=== PATIENT | female | born 1930 | race Caucasian/White ===

== ENCOUNTER 2016-10-17 09:15 | Outpatient (CLI) ==
[2014-12-16 17:01] VITALS: BMI 20.5
[2016-10-17 16:02] LABS: BASOPHILS # (AUTO) 0.1 K/uL (0-0.2); BASOPHILS % (AUTO) 1.1 % (0.0-3.0); EOSINOPHILS # (AUTO) 0.2 K/ul (0.0-0.7); EOSINOPHILS % (AUTO) 2.8 % (0.0-7.0); HEMATOCRIT 32.8 % (37.0-47.0); HEMOGLOBIN 10.3 g/dl (12.0-16.0); IMMATURE GRANULOCYTE % (AUTO) 0.4 % (0.0-5.0); LYMPHOCYTES # (AUTO) 1.8 K/uL (0.60-3.4); LYMPHOCYTES % (AUTO) 20.7 (10.0-50.0); MEAN CORPUSCULAR HEMOGLOBIN 29.8 pg (27.0-31.0); MEAN CORPUSCULAR HGB CONC 31.4 (31.8-35.4); MEAN CORPUSCULAR VOLUME 94.8 fl (81.0-99.0); MONOCYTES # (AUTO) 0.6 K/uL (0.4-2.0); MONOCYTES % (AUTO) 6.4 (0-10); NEUTROPHILS # (AUTO) 5.9 K/ul (2.0-6.9); NEUTROPHILS % (AUTO) 68.6; PLATELET COUNT 352 10^3/uL (140-440); RED BLOOD COUNT 3.46 10^6/ul (4.20-5.40); WHITE BLOOD COUNT 8.56 K/ul (4.6-10.2)
[2016-10-17 16:09] LABS: BILIRUBIN,URINE Negative (NEGATIVE); KETONES,URINE Negative (NEGATIVE); LEUKOCYTE ESTERASE ,URINE 1+ (NEGATIVE); NITRITE,URINE Negative (NEGATIVE); PROTEIN,URINE Negative (NEGATIVE); URINE, BLOOD Negative (NEGATIVE)
[2016-10-17 16:16] LABS: ADD URINE MICROSCOPIC YES
[2016-10-17 16:19] LABS: BACTERIA,URINE 1+ (NOT PRESENT)
[2016-10-17 16:28] LABS: ALBUMIN 3.4 g/dL (3.4-5.0); ALBUMIN/GLOBULIN RATIO 1.13; ANION GAP 14.1; BILIRUBIN,TOTAL 0.37 mg/dL (0.00-1.20); BUN/CREATININE RATIO 20.74; CALCIUM 9.3 mg/dL (8.2-10.2); CHOL/HDL RATIO 3.4 (4.5-5.5); CREATININE 2.7 mg/dL (0.60-1.30); MAGNESIUM 1.9 mg/dL (1.7-2.2); PHOSPHORUS 3.8 mg/dL (2.8-4.1); POTASSIUM 4.1 mmol/L (3.5-5.10); TOTAL PROTEIN 6.4 g/dL (5.8-8.1); URIC ACID 6.1 mg/dL (2.4-6.0)
[2016-10-18 07:17] LABS: URINE CREATINE 125.6 mg/dL (Not Estab.)
[2016-10-18 09:29] LABS: VITAMIN D25 50.2 ng/mL (30.0-100.0)
== END 2016-10-17 09:16 | disposition home or self-care (01) ==
LOC: LAB 09:15
PROVIDERS: ATTEND General Practice
DX: N18.4 Chronic kidney disease, stage 4 (severe) (principal); E55.9 Vitamin D deficiency, unspecified; I10 Essential (primary) hypertension
CPT/HCPCS: 36415; 80053; 80061; 81001; 82306; 82570; 83735; 83970; 84100; 84156; 84550; 85025

== ENCOUNTER 2017-02-14 11:41 | Outpatient (CLI) ==
[2014-12-16 17:01] VITALS: BMI 20.5
[2017-02-14 12:47] LABS: BASOPHILS # (AUTO) 0.1 K/uL (0-0.2); BASOPHILS % (AUTO) 1.4 % (0.0-3.0); EOSINOPHILS # (AUTO) 0.2 K/ul (0.0-0.7); HEMATOCRIT 34.4 % (37.0-47.0); HEMOGLOBIN 11.5 g/dl (12.0-16.0); IMMATURE GRANULOCYTE % (AUTO) 0.2 % (0.0-5.0); LYMPHOCYTES # (AUTO) 2.3 K/uL (0.60-3.4); MEAN CORPUSCULAR HGB CONC 33.4 (31.8-35.4); MEAN CORPUSCULAR VOLUME 92.7 fl (81.0-99.0); MONOCYTES # (AUTO) 0.6 K/uL (0.4-2.0); NEUTROPHILS # (AUTO) 4.9 K/ul (2.0-6.9); NEUTROPHILS % (AUTO) 60.4; PLATELET COUNT 359 10^3/uL (140-440); RED BLOOD COUNT 3.71 10^6/ul (4.20-5.40); WHITE BLOOD COUNT 8.13 K/ul (4.6-10.2)
[2017-02-14 13:03] LABS: ALBUMIN 3.7 g/dL (3.4-5.0); ALBUMIN/GLOBULIN RATIO 1.23; ANION GAP 15.2; BILIRUBIN,TOTAL 0.73 mg/dL (0.00-1.20); BILIRUBIN,URINE Negative (NEGATIVE); BUN/CREATININE RATIO 19.77; CALCIUM 9.8 mg/dL (8.2-10.2); CHOL/HDL RATIO 3.3 (4.5-5.5); CREATININE 2.68 mg/dL (0.60-1.30); KETONES,URINE Negative (NEGATIVE); LEUKOCYTE ESTERASE ,URINE 3+ (NEGATIVE); NITRITE,URINE Negative (NEGATIVE); POTASSIUM 4.2 mmol/L (3.5-5.10); PROTEIN,URINE Negative (NEGATIVE); TOTAL PROTEIN 6.7 g/dL (5.8-8.1); URINE, BLOOD Negative (NEGATIVE)
[2017-02-14 13:24] LABS: ADD URINE MICROSCOPIC YES
[2017-02-14 13:27] LABS: BACTERIA,URINE 3+ (NOT PRESENT)
== END 2017-02-14 11:42 | disposition home or self-care (01) ==
LOC: LAB 11:41
PROVIDERS: ATTEND General Practice
DX: I10 Essential (primary) hypertension (principal); N18.4 Chronic kidney disease, stage 4 (severe); E78.5 Hyperlipidemia, unspecified; Z79.899 Other long term (current) drug therapy
CPT/HCPCS: 36415; 80053; 80061; 81001; 85025; 87086; 87186

== ENCOUNTER 2017-02-15 11:41 | Outpatient (CLI) ==
[2014-12-16 17:01] VITALS: BMI 20.5
[2017-02-15 13:07] LABS: HEMATOCRIT 32.7 % (37.0-47.0); HEMOGLOBIN 11.1 g/dl (12.0-16.0); MEAN CORPUSCULAR HEMOGLOBIN 31.1 pg (27.0-31.0); MEAN CORPUSCULAR HGB CONC 33.9 (31.8-35.4); MEAN CORPUSCULAR VOLUME 91.6 fl (81.0-99.0); RED BLOOD COUNT 3.57 10^6/ul (4.20-5.40); WHITE BLOOD COUNT 7.81 K/ul (4.6-10.2)
[2017-02-15 13:17] LABS: BILIRUBIN,URINE Negative (NEGATIVE); KETONES,URINE Negative (NEGATIVE); LEUKOCYTE ESTERASE ,URINE 2+ (NEGATIVE); NITRITE,URINE Negative (NEGATIVE); PROTEIN,URINE Negative (NEGATIVE); URINE, BLOOD Negative (NEGATIVE)
[2017-02-15 13:18] LABS: ADD URINE MICROSCOPIC YES
[2017-02-15 13:22] LABS: BACTERIA,URINE 3+ (NOT PRESENT)
[2017-02-15 14:10] LABS: ALBUMIN 3.7 g/dL (3.4-5.0); ANION GAP 14.3; BUN/CREATININE RATIO 22.52; CALCIUM 9.7 mg/dL (8.2-10.2); CREATININE 2.53 mg/dL (0.60-1.30); PHOSPHORUS 3.1 mg/dL (2.8-4.1); POTASSIUM 4.3 mmol/L (3.5-5.10); URIC ACID 5.4 mg/dL (2.4-6.0)
[2017-02-16 06:12] LABS: URINE CREATINE 75.8 mg/dL (Not Estab.)
== END 2017-02-15 11:42 | disposition home or self-care (01) ==
LOC: LAB 11:41
PROVIDERS: ATTEND General Practice
DX: N18.4 Chronic kidney disease, stage 4 (severe) (principal); I10 Essential (primary) hypertension
CPT/HCPCS: 36415; 80069; 81001; 82306; 82570; 83735; 83970; 84156; 84550; 85025; 85027

== ENCOUNTER 2017-04-11 13:58 | Outpatient (CLI) ==
[2014-12-16 17:01] VITALS: BMI 20.5
[2017-04-11 16:15] LABS: BASOPHILS # (AUTO) 0.1 K/uL (0-0.2); BASOPHILS % (AUTO) 0.9 % (0.0-3.0); EOSINOPHILS # (AUTO) 0.1 K/ul (0.0-0.7); EOSINOPHILS % (AUTO) 0.6 % (0.0-7.0); HEMATOCRIT 35.3 % (37.0-47.0); IMMATURE GRANULOCYTE % (AUTO) 0.1 % (0.0-5.0); LYMPHOCYTES # (AUTO) 1.3 K/uL (0.60-3.4); LYMPHOCYTES % (AUTO) 15.7 (10.0-50.0); MEAN CORPUSCULAR HEMOGLOBIN 31.7 pg (27.0-31.0); MEAN CORPUSCULAR VOLUME 93.1 fl (81.0-99.0); MONOCYTES # (AUTO) 0.3 K/uL (0.4-2.0); MONOCYTES % (AUTO) 4.1 (0-10); NEUTROPHILS # (AUTO) 6.4 K/ul (2.0-6.9); NEUTROPHILS % (AUTO) 78.6; PLATELET COUNT 332 10^3/uL (140-440); RED BLOOD COUNT 3.79 10^6/ul (4.20-5.40); WHITE BLOOD COUNT 8.14 K/ul (4.6-10.2)
[2017-04-11 16:22] LABS: OCCULT BLOOD INTERNAL QC 1 INTERNAL QC VALID; OCCULT BLOOD INTERNAL QC 2 INTERNAL QC VALID; OCCULT BLOOD INTERNAL QC 3 INTERNAL QC VALID; OCCULT BLOOD SAMPLE 1 NEGATIVE (NEGATIVE); OCCULT BLOOD SAMPLE 2 NO SPECIMEN RECEIVED (NEGATIVE); OCCULT BLOOD SAMPLE 3 NO SPECIMEN RECEIVED (NEGATIVE)
[2017-04-11 16:51] LABS: ALBUMIN 4.3 g/dL (3.4-5.0); ALBUMIN/GLOBULIN RATIO 1.72; ANION GAP 14.9; BILIRUBIN,TOTAL 0.66 mg/dL (0.00-1.20); CALCIUM 10.1 mg/dL (8.2-10.2); CREATININE 3.43 mg/dL (0.60-1.30); POTASSIUM 4.9 mmol/L (3.5-5.10); TOTAL PROTEIN 6.8 g/dL (5.8-8.1)
[2017-04-11 16:52] LABS: BUN/CREATININE RATIO 16.61
== END 2017-04-11 13:59 | disposition home or self-care (01) ==
LOC: LAB 13:58
PROVIDERS: ATTEND General Practice
DX: R10.9 Unspecified abdominal pain (principal); Z79.891 Long term (current) use of opiate analgesic; R43.8 Other disturbances of smell and taste
CPT/HCPCS: 36415; 80053; 82272; 84443; 85025

== ENCOUNTER 2017-04-12 12:50 | Observation (INO) | payer OTHER ==
[2017-04-12 13:34] VITALS: BMI 20.2
--- NOTE | 2017-04-12 16:56 | DI ---
EXAM: Two-view chest HISTORY: Weight loss TECHNIQUE: Frontal and lateral views of the chest were obtained. Comparison 12/16/2014. FINDINGS: The heart is normal size. There is stable appearance of probable scarring in the lateral left lung base. Lungs are otherwise clear. The pulmonary vasculature appears normal. The osseous structures are normal. IMPRESSION: No active cardiopulmonary disease.
--- NOTE | 2017-04-12 16:57 | DI ---
Exam: Two x-rays of the abdomen. Comparison: None available. Reason for exam: Abdominal pain. FINDINGS: Levoscoliotic changes are seen in the thoracolumbar spine. The bowel gas pattern is nons pecific and nonobstructive. Air is seen to the level of the rectosigmoid. There is a moderate amou nt of stool seen within the colon. The pelvic ring appears intact. Impression: 1. Nonspecific, nonobstructive bowel gas pattern with air seen to the level of the rectosigmoid wit h a moderate stool burden. 2. Levoscoliosis.
[2017-04-12] MEDS: COZAAR PO SCH (20:46)
[2017-04-12] MEDS: APRESOLINE PO SCH (20:46)
[2017-04-12] MEDS: SODIUM BICARBONATE PO SCH (20:47)
[2017-04-12] MEDS ORDERED: INFUVITE ADULT IV ONE (20:56)
[2017-04-12] MEDS ORDERED: ARICEPT PO SCH (21:00)
[2017-04-12] MEDS: INFUVITE ADULT 10 ML in D5%-1/4NS-KCL 20 MEQ/L IV SOL 1,000 ML IV SCH (21:04)
[2017-04-13 04:44] LABS: BASOPHILS # (AUTO) 0.1 K/uL (0-0.2); BASOPHILS % (AUTO) 1.1 % (0.0-3.0); EOSINOPHILS # (AUTO) 0.2 K/ul (0.0-0.7); EOSINOPHILS % (AUTO) 3.2 % (0.0-7.0); HEMATOCRIT 30.4 % (37.0-47.0); HEMOGLOBIN 10.2 g/dl (12.0-16.0); IMMATURE GRANULOCYTE % (AUTO) 0.2 % (0.0-5.0); LYMPHOCYTES # (AUTO) 1.7 K/uL (0.60-3.4); LYMPHOCYTES % (AUTO) 26.3 (10.0-50.0); MEAN CORPUSCULAR HEMOGLOBIN 31.1 pg (27.0-31.0); MEAN CORPUSCULAR HGB CONC 33.6 (31.8-35.4); MEAN CORPUSCULAR VOLUME 92.7 fl (81.0-99.0); MONOCYTES # (AUTO) 0.6 K/uL (0.4-2.0); MONOCYTES % (AUTO) 9.2 (0-10); NEUTROPHILS # (AUTO) 3.9 K/ul (2.0-6.9); PLATELET COUNT 246 10^3/uL (140-440); RED BLOOD COUNT 3.28 10^6/ul (4.20-5.40); WHITE BLOOD COUNT 6.53 K/ul (4.6-10.2)
[2017-04-13 05:04] LABS: ALBUMIN 3.3 g/dL (3.4-5.0); ALBUMIN/GLOBULIN RATIO 1.57; ANION GAP 14.9; BILIRUBIN,TOTAL 0.49 mg/dL (0.00-1.20); BUN/CREATININE RATIO 17.76; CALCIUM 9.2 mg/dL (8.2-10.2); CREATININE 3.04 mg/dL (0.60-1.30); POTASSIUM 4.9 mmol/L (3.5-5.10); TOTAL PROTEIN 5.4 g/dL (5.8-8.1)
[2017-04-13] MEDS ORDERED: NIFEREX 150 PO SCH (08:00)
[2017-04-13] MEDS ORDERED: INFUVITE ADULT IV ONE (08:55)
[2017-04-13] MEDS ORDERED: VITAMIN D PO SCH (09:00)
[2017-04-13] MEDS ORDERED: BYSTOLIC PO SCH (09:00)
[2017-04-13] MEDS ORDERED: MULTIVITAMIN PO SCH (09:00)
[2017-04-13] MEDS ORDERED: NORVASC PO SCH (09:00)
[2017-04-13] MEDS ORDERED: HYDROCHLOROTHIAZIDE PO SCH (09:00)
[2017-04-13] MEDS ORDERED: ZYLOPRIM PO SCH (09:00)
[2017-04-13] MEDS: INFUVITE ADULT 10 ML in D5%-1/4NS-KCL 20 MEQ/L IV SOL 1,000 ML IV SCH (09:01)
[2017-04-13] MEDS: SODIUM BICARBONATE PO SCH ×2 (09:12→22:44)
[2017-04-13] MEDS: COZAAR PO SCH ×2 (09:13→22:44)
[2017-04-13] MEDS: APRESOLINE PO SCH ×2 (09:13→22:43)
[2017-04-13 10:38] LABS: H. PYLORI STOOL ANTIGEN NEGATIVE (NEGATIVE); H.PYLORI STOOL AG INTERNAL QC INTERNAL QC VALID
[2017-04-13] MEDS: NON-FORMULARY MEDICATION (Cyanocobalamin (Vitamin B-12) [Vitamin B-12] 2,500 MCG) SL SCH (13:31)
--- NOTE | 2017-04-13 14:21 | CT ---
EXAM: CT Abdomen without contrast. CT Pelvis without contrast. HISTORY: Nausea. Generalized abdominal pain. COMPARISON: None available. Radiograph 1 day prior. TECHNIQUE: Multiple axial images of the abdomen and pelvis were obtained without intravenous contra st. Images were reformatted in the coronal plane. FINDINGS: Please note that evaluation of the abdominal and pelvic structures is limited due to lack of intravenous contrast. Subsegmental atelectasis noted in the right lung base. Degenerative changes present in the spine, g reatest at T12-L1 and L1-2. The liver, gallbladder, pancreas, spleen, and adrenal glands demonstrate normal contour. There is l eft renal atrophy. Exophytic low-density left renal lesions measure up to 2.3 x 2.4 cm superiorly o n axial image 15 and 4.7 x 4 cm on axial image 17. No calcified renal stones or hydronephrosis iden tified. The bowel is normal in course and caliber without evidence for obstruction or inflammatory process. The appendix is not seen. Uterus demonstrates normal contour. Urinary bladder is unremarkable. P hleboliths noted in the pelvis. No free fluid or free air identified. Atherosclerotic calcificatio ns are present. IMPRESSION: 1. No acute abnormality within the abdomen or pelvis. 2. Probable left renal cysts. Correlate with ultrasound.
[2017-04-13] MEDS: NON-FORMULARY MEDICATION (Amlodipine Besylate [Amlodipine Besylate] 10 MG) PO SCH ×22 (15:11)
[2017-04-13] MEDS ORDERED: ARICEPT PO SCH (21:00)
[2017-04-14 05:24] LABS: BASOPHILS # (AUTO) 0.1 K/uL (0-0.2); BASOPHILS % (AUTO) 1.5 % (0.0-3.0); EOSINOPHILS # (AUTO) 0.2 K/ul (0.0-0.7); EOSINOPHILS % (AUTO) 2.7 % (0.0-7.0); HEMATOCRIT 31.7 % (37.0-47.0); HEMOGLOBIN 10.7 g/dl (12.0-16.0); IMMATURE GRANULOCYTE % (AUTO) 0.4 % (0.0-5.0); LYMPHOCYTES # (AUTO) 2.5 K/uL (0.60-3.4); LYMPHOCYTES % (AUTO) 30.1 (10.0-50.0); MEAN CORPUSCULAR HEMOGLOBIN 30.7 pg (27.0-31.0); MEAN CORPUSCULAR HGB CONC 33.8 (31.8-35.4); MEAN CORPUSCULAR VOLUME 90.8 fl (81.0-99.0); MONOCYTES # (AUTO) 0.7 K/uL (0.4-2.0); MONOCYTES % (AUTO) 8.4 (0-10); NEUTROPHILS # (AUTO) 4.6 K/ul (2.0-6.9); NEUTROPHILS % (AUTO) 56.9; PLATELET COUNT 268 10^3/uL (140-440); RED BLOOD COUNT 3.49 10^6/ul (4.20-5.40); WHITE BLOOD COUNT 8.13 K/ul (4.6-10.2)
[2017-04-14 05:43] LABS: ALBUMIN 3.5 g/dL (3.4-5.0); ALBUMIN/GLOBULIN RATIO 1.67; ANION GAP 14.5; BILIRUBIN,TOTAL 0.7 mg/dL (0.00-1.20); BUN/CREATININE RATIO 16.39; CALCIUM 9.6 mg/dL (8.2-10.2); CREATININE 2.44 mg/dL (0.60-1.30); POTASSIUM 4.5 mmol/L (3.5-5.10); TOTAL PROTEIN 5.6 g/dL (5.8-8.1)
[2017-04-14] MEDS ORDERED: SPIRONOLACTONE 50 MG PO SCH (09:00)
[2017-04-14] MEDS ORDERED: HYDROCHLOROTHIAZIDE PO SCH (09:00)
[2017-04-14] MEDS ORDERED: VIT B12 PO SCH (09:00)
[2017-04-14] MEDS ORDERED: NON-FORMULARY MEDICATION (Cholecalciferol (Vitamin D3) [Vitamin D3] 2,000 UNIT) PO SCH (09:00)
[2017-04-14] MEDS ORDERED: [UNRECOGNIZED DRUG - OTHER] PO SCH (09:00)
[2017-04-14] MEDS ORDERED: ALDACTONE PO SCH (09:00)
[2017-04-14] MEDS ORDERED: IRON PS CMPLX PO SCH (09:00)
[2017-04-14] MEDS ORDERED: NON-FORMULARY MEDICATION (Multivit With Calcium,Iron,Min [Women's Daily Formula] 1 EACH) PO SCH (09:00)
[2017-04-14] MEDS ORDERED: NON-FORMULARY MEDICATION (Nebivolol Hcl [Bystolic] 10 MG) PO SCH ×22 (09:00)
[2017-04-14] MEDS: NON-FORMULARY MEDICATION (Amlodipine Besylate [Amlodipine Besylate] 10 MG) PO SCH ×22 (10:01)
[2017-04-14] MEDS: COZAAR PO SCH (10:02)
[2017-04-14] MEDS: SODIUM BICARBONATE PO SCH (10:02)
[2017-04-14] MEDS: APRESOLINE PO SCH (10:03)
[2017-04-14] MEDS: NON-FORMULARY MEDICATION (Cyanocobalamin (Vitamin B-12) [Vitamin B-12] 2,500 MCG) SL SCH (10:16)
[2017-04-14 10:37] VITALS: BP 172/72; TEMP 97.7
[2017-04-14 16:09] LABS: BILIRUBIN,URINE Negative (NEGATIVE); KETONES,URINE Negative (NEGATIVE); LEUKOCYTE ESTERASE ,URINE Negative (NEGATIVE); NITRITE,URINE Negative (NEGATIVE); PROTEIN,URINE Negative (NEGATIVE); URINE, BLOOD Negative (NEGATIVE)
[2017-04-14 16:10] LABS: ADD URINE MICROSCOPIC NO
--- NOTE | 2017-04-19 12:08 | HP ---
CHIEF COMPLAINT: Abdominal pain and tenderness. SOURCE OF HISTORY: . HISTORY OF PRESENT ILLNESS: The patient on 04/11/17 came to the office with her because of pain upon waking up in the morning for the last two months. The patient at that time no longer had pain, but had marked tenderness in the lower quadrants of the abdomen, but no palpable masses. Bowel sounds were active. She also lost a sense of smell and taste. She had labs that day, plus x -rays that showed borderline anemia, normal WBC, BUN markedly elevated at 57, creatinine 3.43, E GFR 13. TSH 8.335. Occult blood on stool was negative. X- rays were ordered, but was not certified with insurance. The X-rays consisted of CT scan of the head or MRI. Because of the unremarkable lab findings and the patient with active complaints, the patient was felt to require hospitalization under observation to do further testing. The patient was then subsequently admitted on 04/12/2017. PAST PERSONAL HISTORY: The patient had bilateral bronchiolitis maybe viral about three years ago. Chronic kidney disease stage IV followed by councilperson. Hypertension on medication. History of congestive heart failure on Aldactone. History of GERD and progressive senile dementia. She had complained of leg cramps previously, but not at this time. FAMILY HISTORY: Father had CVA. Mother had diabetes mellitus. SOCIAL HISTORY: The patient is and resides with her . This is her second marriage, as well as her husbands. She never did smoke any cigarettes or any tobacco products and no alcoholic beverages. MEDICATIONS: Prior to this admission Aldactone 50 mg tablet every 48 hours Donepezil 10 mg daily Iron plus B12 capsule one daily Amlodipine 10 mg daily Hydrochlorothiazide 12.5 mg every morning Hydralazine 100 mg twice a day for hypertension Vitamin D3 2,000 IU daily Vitamin B12 2,500 mcg sublingually daily Allopurinol 100 mg tablet daily Losartan 25 mg twice a day Nebivolol 10 mg daily Sodium Bicarbonate 650 mg tablet twice a day Women's Daily Formula vitamin one a day ALLERGIES: No known drug allergies. REVIEW OF SYSTEMS: CONSTITUTIONAL: The patient had no fever or chills with no significant fatigue. PERFORMANCE TEST ENGINEER: The patient has senile dementia and is forgetful, but answers questions correctly. History of seizures and no history of loss of consciousness. VISUAL: Denies any double vision, blurred vision or total loss of vision. AUDITORY: Hearing is adequate and denies any tinnitus, pain or drainage. RESPIRATORY: Denies any cough and no history of hemoptysis. CARDIOVASCULAR: The patient denies chest pain or chest oppression. She did have a history of congestive heart failure. GASTROINTESTINAL: The patient had lost her sense of smell, as well as taste. She denies any problems swallowing liquids or solids. Her appetite is decreased. She does have abdominal pain upon waking up in the morning in the last two months. Examination revealed tenderness in the lower abdomen with both left and right quadrants. No diarrhea. Last colonoscopy was somewhere about 2007. GENITOURINARY: The patient denies any pain on urination or burning. She does wake up during the night, about three times, to urinate according to her . This patient has chronic kidney disease stage IV to V. She is being followed by a councilperson. MUSCULOSKELETAL: Denies any significant joint or muscular pain. ENDOCRINE: Negative. INTEGUMENT: Denies any rash or pruritus. HEMATOLOGIC: No history of prolonged bleeding. PSYCHIATRIC: Affect is normal. The patient does have senile dementia and is very forgetful of recent events. PHYSICAL EXAMINATION: GENERAL: We have an 86 year old female who is alert, oriented times four, not dyspneic, nor tachypneic with abdominal pain upon rising in the morning with tenderness in the lower abdomen to palpation, although with no masses palpable. She also had lost her sense of smell and taste. VITAL SIGNS: On admission 04/12/2017 showed a temperature of 97.6, pulse 84, blood pressure left 140/80, right 136/84, respiratory rate 20. 5'3", 114 pounds. This patient had been losing weight over the last few years. HEAD: Unremarkable. FACE: Symmetrical and equal with no facial weakness and no tenderness in the frontal or maxillary sinus areas to palpation under pressure. EYES: Pupils equal/reactive to light about 3 mm in size. Conjunctivae somewhat pale. Sclerae not icteric. MOUTH: No dentures. THROAT: No inflammation, tumors or exudate. NECK: No masses. Bruit on both sides, louder on the right. No tenderness. No rigidity. CHEST: Symmetrical and equal with good expansion with no remarkable tenderness. LUNGS: Breath sounds are heard in both sides. No rales or wheezing. HEART: Audible and regular with good tones. No murmurs. BREASTS: Symmetrical and equal. Nipples not retracted. No dominant masses in the breast and the skin appears normal. AXILLA: No adenopathies or tumors or tenderness. ABDOMEN: Flat, soft with tenderness on palpation to the lower abdomen, but no palpable masses and no bruit. PELVIC: No adnexal tumor or masses. No tenderness in the adnexa. The uterus is not palpable. RECTAL: Anal sphincter is competent. No masses. LOWER EXTREMITIES: Symmetrical and equal with no edema. The pedal pulses are absent. UPPER EXTREMITIES: Symmetrical and equal. ASSESSMENT: 1. RECURRENT UPPER ABDOMINAL PAIN IN THE MORNING, ETIOLOGY UNDETERMINED 2. BILATERAL LOWER ABDOMINAL TENDERNESS, CAUSE UNDETERMINED 3. CHRONIC KIDNEY DISEASE STAGE IV TO V BY HISTORY 4. LOSS OF SENSE OF SMELL AND TASTE 5. GRADUAL CONTINUOUS LOSS OF WEIGHT 6. HYPERTENSION 7. ANEMIA MTDD
--- NOTE | 2017-04-19 12:36 | DS ---
PATIENT IDENTIFICATION: 86 year old female admitted to the hospital because of recurrent upper abdominal pain upon waking up in the morning. The patient on examination had tenderness on both quadrants of the lower abdomen, but no palpable mass. She also had lost the sense of smell and taste. CT scan of the head was ordered, but needed precertification and so it was not done. HOSPITAL COURSE: Physical examination revealed a bilateral bruit in the neck, right louder than left. Bilateral lower abdominal tenderness. The pedal pulses are absent. Her labs did show moderate anemia with hemoglobin 10.2 to 10.7. Hematocrit 30.4 to 31.7. WBC and platelet count normal. The GFR on was 13. The GFR on admission was 15. The patient does not desire to have any dialysis and she is being followed by a armored machine operator in [place]. Her BNP was slightly elevated at 301. Total protein and Albumin were slightly below normal. B12 normal level. TSH 5.805. Helicobacter pylori screen of the stool was negative. The patient had a chest x-ray showing no active cardiopulmonary disease on 04/12/2017. Abdominal x-ray series supine and upright 04/12/17 showed no specific abnormalities and levoscoliosis. CT scan of the abdomen and pelvis was done to further investigate the recurrent upper abdominal pain and also the tenderness on the lower quadrants of the abdomen. The Ct scan of the abdomen does not reveal any acute abnormalities within the abdomen and pelvis. Probably left renal cyst. There was atrophy of the left kidney. This patient was given IV fluids to see if hydration would improve or decrease the BUN and increase the E GFR. The BUN did decrease from 54 to 40 and the GFR did rise to 19 from 15. The rest of the chemistries were unremarkable. B12 level is beyond 2,000 pg/ml. The patient was examined today prior to discharge and the examination was unremarkable, except for the bruit in the neck which was present on admission and the absence of the pedal pulses. The patient was filling machine tender in the lowe abdomen, but no palpable masses and pelvic examination was negative for any masses or tenderness. Rectal examination also was negative. PLAN: This patient is then discharged today with stable vital signs and no explanation for the recurrent upper abdominal pain in the morning upon waking up and the tenderness in the lower abdomen to palpation. The patient, as well as the , was advised to increase her fluid intake as much as possible. She is to resume all of her previous medications and she should see me about a week from today. FINAL DIAGNOSES: 1. RECURRENT UPPER ABDOMINAL PAIN, ETIOLOGY UNDETERMINED 2. LOWER ABDOMINAL TENDERNESS, PERSISTENT, CAUSE UNDETERMINED 3. CHRONIC KIDNEY DISEASE STAGE IV AND V 4. ANEMIA 5. PERIPHERAL ARTERIAL DISEASE 6. BILATERAL CAROTID BRUIT 7. HYPERTENSION 8. SENILE DEMENTIA 9. HISTORY OF CONGESTIVE HEART FAILURE, COMPENSATED MTDD
== END 2017-04-14 14:25 | disposition home or self-care (01) ==
LOC: MEDSURG A 12:50 → INTOOBSV 12:50
PROVIDERS: ADMIT General Practice; ATTEND General Practice
DX: R10.10 Upper abdominal pain, unspecified (principal); R10.814 Left lower quadrant abdominal tenderness; R10.813 Right lower quadrant abdominal tenderness; D64.9 Anemia, unspecified; F03.90 Unspecified dementia, unspecified severity, without behavioral disturbance, psychotic disturbance, mood disturbance, and anxiety; R63.4 Abnormal weight loss; F06.8 Other specified mental disorders due to known physiological condition; R09.89 Other specified symptoms and signs involving the circulatory and respiratory systems; N18.4 Chronic kidney disease, stage 4 (severe); I73.9 Peripheral vascular disease, unspecified; I50.9 Heart failure, unspecified; R43.8 Other disturbances of smell and taste; N26.1 Atrophy of kidney (terminal); M41.85 Other forms of scoliosis, thoracolumbar region; Z79.899 Other long term (current) drug therapy
CPT/HCPCS: 36415; 80053; 81001; 82607; 82652; 83880; 84443; 84550; 85025; 87338

== ENCOUNTER 2017-05-23 11:13 | Outpatient (CLI) ==
[2017-05-23 13:46] LABS: BASOPHILS # (AUTO) 0.1 K/uL (0-0.2); BASOPHILS % (AUTO) 1.1 % (0.0-3.0); BILIRUBIN,URINE Negative (NEGATIVE); EOSINOPHILS # (AUTO) 0.2 K/ul (0.0-0.7); EOSINOPHILS % (AUTO) 2.8 % (0.0-7.0); HEMATOCRIT 32.5 % (37.0-47.0); HEMOGLOBIN 10.8 g/dl (12.0-16.0); IMMATURE GRANULOCYTE % (AUTO) 0.3 % (0.0-5.0); KETONES,URINE Negative (NEGATIVE); LEUKOCYTE ESTERASE ,URINE Negative (NEGATIVE); LYMPHOCYTES # (AUTO) 2.1 K/uL (0.60-3.4); LYMPHOCYTES % (AUTO) 26.2 (10.0-50.0); MEAN CORPUSCULAR HEMOGLOBIN 30.8 pg (27.0-31.0); MEAN CORPUSCULAR HGB CONC 33.2 (31.8-35.4); MEAN CORPUSCULAR VOLUME 92.6 fl (81.0-99.0); MONOCYTES # (AUTO) 0.7 K/uL (0.4-2.0); MONOCYTES % (AUTO) 8.8 (0-10); NEUTROPHILS # (AUTO) 4.8 K/ul (2.0-6.9); NEUTROPHILS % (AUTO) 60.8; NITRITE,URINE Negative (NEGATIVE); PLATELET COUNT 295 10^3/uL (140-440); PROTEIN,URINE Negative (NEGATIVE); RED BLOOD COUNT 3.51 10^6/ul (4.20-5.40); URINE, BLOOD Negative (NEGATIVE); WHITE BLOOD COUNT 7.87 K/ul (4.6-10.2)
[2017-05-23 13:47] LABS: ADD URINE MICROSCOPIC NO
[2017-05-23 14:21] LABS: ALBUMIN 3.8 g/dL (3.4-5.0); ALBUMIN/GLOBULIN RATIO 1.41; ANION GAP 17.5; BILIRUBIN,TOTAL 0.49 mg/dL (0.00-1.20); BUN/CREATININE RATIO 18.57; CALCIUM 9.4 mg/dL (8.2-10.2); CHOL/HDL RATIO 3.2 (4.5-5.5); POTASSIUM 4.5 mmol/L (3.5-5.10); TOTAL PROTEIN 6.5 g/dL (5.8-8.1)
[2017-05-23 14:26] LABS: CREATININE 3.5 mg/dL (0.60-1.30)
== END 2017-05-23 11:14 | disposition home or self-care (01) ==
LOC: LAB 11:13
PROVIDERS: ATTEND General Practice
DX: I10 Essential (primary) hypertension (principal); N18.4 Chronic kidney disease, stage 4 (severe); K21.0 Gastro-esophageal reflux disease with esophagitis; K22.2 Esophageal obstruction; K22.70 Barrett's esophagus without dysplasia; E78.5 Hyperlipidemia, unspecified; E87.5 Hyperkalemia; F03.90 Unspecified dementia, unspecified severity, without behavioral disturbance, psychotic disturbance, mood disturbance, and anxiety; N18.6 End stage renal disease; Z79.899 Other long term (current) drug therapy
CPT/HCPCS: 36415; 80053; 80061; 81001; 85025

== ENCOUNTER 2017-05-29 14:46 | Outpatient (CLI) ==
--- NOTE | 2017-05-29 15:47 | CT ---
EXAM: CT Abdomen without contrast. CT Pelvis without contrast. HISTORY: Right lower quadrant pain. Pelvic and right hip pain. COMPARISON: 04/13/2017. TECHNIQUE: Multiple axial images of the abdomen and pelvis were obtained without intravenous contra st. Images were reformatted in the coronal plane. FINDINGS: Please note that evaluation of the abdominal and pelvic structures is limited due to lack of intravenous contrast. The lung bases are clear. Degenerative changes present in the spine with left convex thoracolumbar curvature noted. No acute fractures seen. No localized abnormality of the right hip identified. The liver, gallbladder, pancreas, spleen, adrenal glands demonstrate normal contour. Left renal atr ophy noted with multiple probable left renal cysts appearing unchanged. There is no hydronephrosis. Right kidney is unremarkable. The bowel is normal in course and caliber without evidence for obstruction or inflammatory process. Colonic diverticulosis noted. The appendix is not seen. Uterus demonstrates normal contour. Urin hemal bladder is unremarkable. Phleboliths noted in the pelvis. Atherosclerotic calcifications are p resent. No free fluid or free air identified. Since the prior study, there has been no significant interval change. IMPRESSION: No acute abnormality in the abdomen or pelvis.
== END 2017-05-29 14:47 | disposition home or self-care (01) ==
LOC: RAD 14:46
PROVIDERS: ATTEND General Practice
DX: R10.31 Right lower quadrant pain (principal)

== ENCOUNTER 2017-06-21 10:36 | Outpatient (CLI) ==
[2017-06-21 11:28] LABS: HEMOGLOBIN 10.6 g/dl (12.0-16.0); MEAN CORPUSCULAR HEMOGLOBIN 31.3 pg (27.0-31.0); MEAN CORPUSCULAR HGB CONC 34.2 (31.8-35.4); MEAN CORPUSCULAR VOLUME 91.4 fl (81.0-99.0); RED BLOOD COUNT 3.39 10^6/ul (4.20-5.40); WHITE BLOOD COUNT 9.79 K/ul (4.6-10.2)
[2017-06-21 11:44] LABS: BILIRUBIN,URINE Negative (NEGATIVE); KETONES,URINE Negative (NEGATIVE); LEUKOCYTE ESTERASE ,URINE 1+ (NEGATIVE); NITRITE,URINE Negative (NEGATIVE); PH,URINE 7.5 (5-9); PROTEIN,URINE Negative (NEGATIVE); URINE, BLOOD Negative (NEGATIVE)
[2017-06-21 11:48] LABS: ADD URINE MICROSCOPIC YES
[2017-06-21 11:49] LABS: BACTERIA,URINE TRACE (NOT PRESENT)
[2017-06-21 12:00] LABS: ALBUMIN 3.7 g/dL (3.4-5.0); ANION GAP 17.9; BUN/CREATININE RATIO 16.93; CALCIUM 10.2 mg/dL (8.2-10.2); MAGNESIUM 1.7 mg/dL (1.7-2.2); POTASSIUM 4.9 mmol/L (3.5-5.10); URIC ACID 4.7 mg/dL (2.4-6.0)
[2017-06-21 13:12] LABS: CREATININE 3.66 mg/dL (0.60-1.30)
== END 2017-06-21 10:37 | disposition home or self-care (01) ==
LOC: LAB 10:36
PROVIDERS: ATTEND Internal Medicine Nephrology
DX: N18.4 Chronic kidney disease, stage 4 (severe) (principal); E55.9 Vitamin D deficiency, unspecified; I10 Essential (primary) hypertension
CPT/HCPCS: 36415; 80069; 81001; 82306; 82570; 83735; 83970; 84156; 84550; 85027

== ENCOUNTER 2017-10-17 12:10 | Outpatient (CLI) | END 2017-10-17 12:11 | disposition home or self-care (01) | LOC: ED 12:10 → OUTPT 12:11 | PROVIDERS: ATTEND Internal Medicine Nephrology | DX: N18.5 Chronic kidney disease, stage 5 (principal); I10 Essential (primary) hypertension | CPT/HCPCS: 36415; 80069; 81001; 82306; 82570; 83735; 83970; 84156; 84550; 85027 ==

== ENCOUNTER 2017-11-20 13:35 | Outpatient (CLI) | END 2017-11-20 13:36 | disposition home or self-care (01) | LOC: LAB 13:35 | PROVIDERS: ATTEND General Practice | DX: E78.5 Hyperlipidemia, unspecified (principal); I10 Essential (primary) hypertension | CPT/HCPCS: 36415; 80053; 80061 ==

== ENCOUNTER 2018-01-20 13:38 | Emergency (ER) ==
[2018-01-20 13:49] VITALS: BP 172/77; TEMP 101.9; BMI 21.9
[2018-01-20] MEDS ORDERED: SODIUM CHLORIDE 1,000 ML IV STA (13:59)
[2018-01-20] MEDS ORDERED: SOLU-CORTEF 250 MG IVP STA (13:59)
[2018-01-20] MEDS ORDERED: ADRENALIN 1:1000 SDV IM STA (14:01)
[2018-01-20] MEDS ORDERED: SOLU-MEDROL 125 MG IVP STA (14:01)
[2018-01-20] MEDS ORDERED: EPINEPHRINE 1:1,000 AMP ONE (14:09)
[2018-01-20] MEDS ORDERED: TYLENOL RC STA (14:09)
[2018-01-20] MEDS ORDERED: ZANTAC IVP STA (14:11)
[2018-01-20] MEDS ORDERED: PEPCID 20 MG in SODIUM CHLORIDE 50 ML IV STA (14:50)
[2018-01-20] MEDS ORDERED: TYLENOL LIQUID 650 MG/20.3 ML PO STA (14:50)
[2018-01-20] MEDS ORDERED: PEPCID ONE (15:10)
--- NOTE | 2018-01-20 15:11 | ED.PDOC ---
General ED Provider: Dr. ANA BERGER Chief Complaint: Eye Problem Stated Complaint: Patient comes to the ER with swollen face and lips. Has dementia and is poor historian. Family not sure if she fell. Has not taken anything she is allergic to and has not been outside. She is more confused per family. Time Seen by Physician: 15:07 Mode of Arrival: Wheelchair Information Source: Patient, Family Exam Limitations: No limitations [facility] Nursing and Triage Documentation Reviewed and Agree: Yes Reviewed sepsis parameters & appropriate labs ordered?: No System Inflammatory Response Syndrome: Temp 101F or Greater Sepsis Protocol: For patient's 13 years and over: Temp is 96.8 and below OR 101 and greater Pulse >90 BPM Resp >20/minute Acutely Altered Mental Status Are patient's symptoms suggestive of a new infection, such as: -Pneumonia -Skin, Soft Tissue -Endocarditis -UTI -Bone, Joint Infection -Implantable Device -Acute Abdominal Infection -Wound Infection -Meningitis -Blood Stream Catheter Infection -Unknown System Inflammatory Response Syndrome: Not Applicable EENT Complaint Exam - Eye Complaint/Exam Onset/Duration: 1 day Review of Systems - Review Of Systems Constitutional: Reports: Fever Eyes: Reports: Other (periorbital swelling. ) Ears, Nose, Mouth, Throat: Reports: Mouth pain, Mouth swelling Respiratory: Reports: No symptoms Cardiac: Reports: No symptoms Neurological: Reports: Anxiety, Other (demented ) All Other Systems: Other Past Medical History - Past Medical History Endocrine: Reports: Dyslipidemia Cardiovascular: Reports: Hypertension Respiratory: Reports: None Hematological: Reports: None Gastrointestinal: Reports: GERD Genitourinary: Reports: CKD Neuro/Psych: Reports: Dementia Musculoskeletal: Reports: None Cancer: Reports: None Last Menstrual Period: na - Surgical History General Surgical History: Reports: None - Family History Family History: Reports: None - Social History Smoking Status: Never smoker Hx Substance Use: No Alcohol Screening: None - Immunizations Tetanus Shot up to Date: No Physical Exam - Physical Exam Appearance: Ill-appearing Ill-appearing: Mild Eyes: BRANDT, EOMI, Conjunctiva inflammed (left eye ) Neck: Supple Respiratory: Airway patent, Breath sounds clear, Breath sounds equal, Respirations nonlabored Cardiovascular: RRR, Pulses normal, No rub, No murmur Musculoskeletal: Normal strength Neurological: Oriented (x1) Psychiatric: Anxious Interpretation - Radiology Interpretation Radiology Interpretation By: Radiologist Radiology Results: Positive (bilateral periorbital cellulitis worse on the left. ) Re-Evaluation - Re-Evaluation Time of Re-Evaluation: 18:51 Status: Improved Vital Signs Stable: Yes (174/73) Additional Comments: Facial swelling has improved. Physician Notification - Case Discussed Physician Notified: Dr. Cota Time of Notification: 18:48 (Accepted for transfer to ICU) Physician Notified: Dr. Winchester Time of Notification: 17:00 (Transfer to [facility], [place] where she will have multiple specities. ) Critical Care Note - Critical Care Note Total Time (mins): 40 Course - Course Hematology/Chemistry: 01/20/18 14:10 01/20/18 14:10 Orders, Labs, Meds: Lab Review 01/20/18 01/20/18 01/20/18 14:10 14:10 14:10 WBC 16.42 H RBC 3.14 L Hgb 9.8 L Hct 28.3 L MCV 90.1 MCH 31.2 H MCHC 34.6 RDW Coeff of Gadiel 12.2 Plt Count 232 Neutrophils % (Manual) 86.0 H Band Neutrophils % 6.0 H Lymphocytes % (Manual) 1.0 L Monocytes % (Manual) 4.0 Reactive Lymphocytes 3.0 Hypochromasia 1+ Anisocytosis Not present Sodium 135 L Potassium 4.6 Chloride 101 Carbon Dioxide 20 L Anion Gap 18.6 BUN 54 H Creatinine 3.15 H Estimated GFR (MDRD) 14.00 BUN/Creatinine Ratio 17.14 Glucose 150 H Lactic Acid Calcium 9.2 Total Bilirubin 1.3 H AST 18 ALT 13 Alkaline Phosphatase 50 L Total Protein 6.3 Albumin 3.0 L Globulin 3.3 Albumin/Globulin Ratio 0.91 Amylase 52 Lipase 16 Procalcitonin 2.59 01/20/18 14:10 WBC RBC Hgb Hct MCV MCH MCHC RDW Coeff of Gadiel Plt Count Neutrophils % (Manual) Band Neutrophils % Lymphocytes % (Manual) Monocytes % (Manual) Reactive Lymphocytes Hypochromasia Anisocytosis Sodium Potassium Chloride Carbon Dioxide Anion Gap BUN Creatinine Estimated GFR (MDRD) BUN/Creatinine Ratio Glucose Lactic Acid 14.6 Calcium Total Bilirubin AST ALT Alkaline Phosphatase Total Protein Albumin Globulin Albumin/Globulin Ratio Amylase Lipase Procalcitonin Orders Category Date Time Status ED IV/MEDIPORT/POWERPORT .ONCE EMERGENCY 01/20/18 13:58 Active AMYLASE Stat LAB 01/20/18 14:10 Completed BLOOD CULTURE (ED ONLY) Stat LAB 01/20/18 14:10 Received CBC W/ AUTO DIFF Stat LAB 01/20/18 14:10 Completed COMPREHENSIVE METABOLIC PANEL Stat LAB 01/20/18 14:10 Completed FLU A/B MOLECULAR Stat LAB 01/20/18 14:52 Uncollected LACTIC ACID Stat LAB 01/20/18 14:10 Completed LIPASE Stat LAB 01/20/18 14:10 Completed MANUAL DIFFERENTIAL Stat LAB 01/20/18 14:10 Completed PROCALCITONIN Stat LAB 01/20/18 14:10 Received URINALYSIS C & S IF INDICATED Stat LAB 01/20/18 13:58 Uncollected 0.9 % Sodium Chloride [Saline Flush] MEDS 01/20/18 13:59 Ordered 1 syr IVF PRN PRN Acetaminophen [Tylenol Liquid 650 mg/20.3 ml] MEDS 01/20/18 14:50 Discontinued 650 mg PO ONCE STA Acetaminophen [Tylenol] MEDS 01/20/18 14:09 Discontinued 650 mg RC ONCE STA Epinephrine Amp [Epinephrine 1:1,000 Amp] MEDS 01/20/18 14:09 Discontinued 1 mg .ROUTE .STK-MED ONE Epinephrine [Adrenalin 1:1000 Sdv] MEDS 01/20/18 14:01 Discontinued 0.3 mg IM ONCE STA Famotidine Inj [Pepcid] 20 mg MEDS 01/20/18 14:50 Active 0.9 % Sodium Chloride [Sodium Chloride] 50 ml IV ONCE Methylprednisolone Sod Succ/Pf [Solu-Medrol 125 mg] MEDS 01/20/18 14:01 Discontinued 125 mg IVP ONCE STA Sodium Chloride 0.9% [Sodium Chloride] 1,000 ml MEDS 01/20/18 13:[address] HEAD W/O CONTRAST Stat RADS 01/20/18 14:49 Ordered Medications Generic Name Dose Route Start Last Admin Trade Name Freq PRN Reason Stop Dose Admin Famotidine 20 mg/ Sodium 52 mls @ 100 mls/hr 01/20/18 14:50 Chloride IV 01/20/18 15:21 ONCE STA Sodium Chloride 1 syr 01/20/18 13:59 Saline Flush IVF PRN PRN To flush IV Discontinued Medications Generic Name Dose Route Start Last Admin Trade Name Freq PRN Reason Stop Dose Admin Acetaminophen 650 mg 01/20/18 14:09 Tylenol RC 01/20/18 14:10 ONCE STA Acetaminophen 650 mg 01/20/18 14:50 Tylenol Liquid 650 Mg/20.3 Ml PO 01/20/18 14:51 ONCE STA Epinephrine HCl 0.3 mg 01/20/18 14:01 01/20/18 14:23 Adrenalin 1:1000 Sdv IM 01/20/18 14:02 Not Given ONCE STA Sodium Chloride 1,000 mls @ 1,000 mls/hr 01/20/18 13:59 01/20/18 14:21 Sodium Chloride IV 01/20/18 14:58 1,000 mls/hr BOLUS STA Administration Methylprednisolone Sodium Succinate 125 mg 01/20/18 14:01 01/20/18 14:20 Solu-Medrol 125 Mg IVP 01/20/18 14:02 125 mg ONCE STA Administration Vital Signs: Temp Pulse Resp BP Pulse Ox 01/20/18 13:43 101.9 F H 80 20 172/77 H 95 Departure - Departure Time of Disposition: 18:22 Disposition: TSF SHORT-TRM HOSP Discharge Problem: Cellulitis of periorbital region of both eyes Instructions: Periorbital Cellulitis in Adults (ED) Condition: Fair Pt referred to PMD for follow-up: No IPMP verified?: No Allergies/Adverse Reactions: Allergies No Known Allergies Allergy (Unverified 05/29/17 13:13) Home Medications: Ambulatory Orders Amlodipine Besylate 10 mg PO DAILY 12/16/14 Donepezil HCl 10 mg PO BEDTIME 12/16/14 Iron Ps Complex/B12/Folic Acid [Poly-Iron 150 Forte Capsule] 1 cap PO DAILY 01/27 Hydralazine HCl 100 mg PO TID 12/17/14 Hydrochlorothiazide 12.5 mg PO QAM 12/17/14 Cholecalciferol (Vitamin D3) [Vitamin D3] 2,000 unit PO DAILY 07/05/15 Nebivolol HCl [Bystolic] 10 mg PO DAILY tab-cap 02/21/17 Spironolactone 50 mg PO DAILY 11/27/17 Allopurinol 100 mg PO DAILY 01/20/18 Magnesium Oxide 400 mg PO DAILY 01/20/18 Pt. Stabilized Within Hospital's Capabilities/Transferred To: [facility] ICU room 8 Transfer Form Completed: Yes Disposition Discussed With: Patient, Family
--- NOTE | 2018-01-20 15:22 | CT ---
EXAM: CT of the head without contrast. HISTORY: Mental status change.. COMPARISON: 12/25/2008 TECHNIQUE: Contiguous axial images at 5 mm intervals were obtained from the base of the skull to the vertex the calvarium. No contrast was given. FINDINGS: The CSF containing spaces are diffusely enlarged consistent with atrophy. There are no ex traaxial fluid collections. There is no evidence of an acute intracranial hemorrhage. There are no masses or mass effect. Hypodensities are seen in the periventricular white matter consistent with ch ronic ischemic changes from small vessel disease. There are no acute vascular territory infarcts. Carotid artery and vertebral artery calcifications are seen. The osseous structures are normal. The re is soft tissue swelling over the left orbit. The intraorbital contents appear normal. Correlate for acute injury versus infection. The extracranial soft tissues are otherwise unremarkable. IMPRESSION: 1. Chronic age-related changes. No acute intracranial abnormalities. 2. Soft tissue swelling left orbit. Correlate for injury versus infection. No acute osseous abnorm alities are seen in this area. The orbital contents appear intact.
[2018-01-20] MEDS ORDERED: URO-JET MUCOUSMEMB STA (15:29)
[2018-01-20] MEDS ORDERED: ROCEPHIN 1 GM in SODIUM CHLORIDE 50 ML IV STA (15:31)
[2018-01-20] MEDS ORDERED: ROCEPHIN ONE (15:51)
--- NOTE | 2018-01-20 17:42 | CT ---
EXAM: CT maxillofacial region without contrast History: Red and swollen left eye Technique: Multiplanar CT images through the maxillofacial region were obtained without the administ ration of IV contrast Findings: There is subcutaneous edema of both cheeks and worse on the left with the edema extending to involve the anterior neck. There is moderate to severe left periorbital edema. No CT evidence fo r orbital cellulitis. The intracranial contents demonstrate no grossly acute findings. No acute fracture or dislocation. Degenerative changes of the cervical spine. Osteopenia. Mild mucosal thickening of the paranasal si nuses. Left mastoid effusion. Impression: 1. Left periorbital cellulitis. No CT evidence for orbital cellulitis. 2. Cellulitis of the face seen bilaterally and worse on the left. 3. Mild sinus disease.
[2018-01-20] MEDS ORDERED: ZYVOX 600 MG in PREMIX 300 ML WATER 1 BAG IV ONE (18:19)
[2018-01-20] MEDS ORDERED: ZYVOX 600 MG/300 ML BAG IV ONE (18:46)
== END 2018-01-20 19:11 | disposition short-term general hospital (02) ==
LOC: ED 13:38
DX: L03.213 Periorbital cellulitis (principal); F03.90 Unspecified dementia, unspecified severity, without behavioral disturbance, psychotic disturbance, mood disturbance, and anxiety; I10 Essential (primary) hypertension; E78.5 Hyperlipidemia, unspecified
CPT/HCPCS: 36415; 80053; 81001; 82150; 83605; 83690; 84145; 85007; 85025; 87040; 87070; 87077; 87186; 87502; 96360; 96361; 96366; 96372; 99284

== ENCOUNTER 2018-02-12 11:35 | Outpatient (CLI) ==
[2018-01-24 20:36] VITALS: BMI 20.9
== END 2018-02-12 11:36 | disposition home or self-care (01) ==
LOC: LAB 11:35
PROVIDERS: ATTEND Internal Medicine Nephrology
DX: N18.5 Chronic kidney disease, stage 5 (principal); I10 Essential (primary) hypertension
CPT/HCPCS: 36415; 80069; 81001; 82306; 82570; 83735; 83970; 84156; 84550; 85027

== ENCOUNTER 2018-03-22 12:29 | Outpatient (CLI) ==
[2018-01-24 20:36] VITALS: BMI 20.9
== END 2018-03-22 12:30 | disposition home or self-care (01) ==
LOC: FCC-LAB 12:29
PROVIDERS: ATTEND General Practice
DX: I10 Essential (primary) hypertension (principal); F03.90 Unspecified dementia, unspecified severity, without behavioral disturbance, psychotic disturbance, mood disturbance, and anxiety; N18.6 End stage renal disease; K22.70 Barrett's esophagus without dysplasia; K22.2 Esophageal obstruction; E78.5 Hyperlipidemia, unspecified; Z79.899 Other long term (current) drug therapy
CPT/HCPCS: 36415; 80053; 80061; 85025

== ENCOUNTER 2018-04-26 19:01 | Emergency (ER) ==
[2018-04-26 19:11] VITALS: BP 123/68; TEMP 97.7; BMI 18.3
--- NOTE | 2018-04-26 19:58 | CT ---
Exam: CT of the abdomen and pelvis without contrast History: Constipation Technique: [address] of the abdomen and pelvis without intravascular contrast FINDINGS: The lung bases are clear. No significant liver abnormality. The adrenals, pancreas and spl een are unremarkable. The stomach and hiatus are unremarkable.Mildly inhibiting movement artifact. T he gallbladder appears normal. The appendix is not commonly seen. Atherosclerotic calcification of the aorta without aneurysm. Benign renal cysts on the left. Left renal atrophy. Right kidney and c ollecting system are unremarkable. Bowel loops demonstrate normal caliber. No inflamatory change seen in the mesentery or retroperitoneum. Stool retention is generally mild-moderate. Moderate distal stool retention. No pelvic fat inflammation. Normal pelvic genitourinary structures . No acute findings of the skeleton. Impression: 1. No inflammatory process, bowel or urinary obstruction is seen. 2. Left renal atrophy and cysts stable from 05/29/2017 3. Mild to moderate colonic stool retention
--- NOTE | 2018-04-26 20:09 | ED.PDOC ---
General ED Provider: Dr. VALERY LOPEZ-ER Chief Complaint: Constipation Stated Complaint: we think she is constipated Time Seen by Physician: 19:10 Mode of Arrival: Walk-In Information Source: Patient, Family Exam Limitations: No limitations Primary Care Provider: [facility] Nursing and Triage Documentation Reviewed and Agree: Yes Does patient meet sepsis criteria?: No System Inflammatory Response Syndrome: Not Applicable Sepsis Protocol: For patient's 13 years and over: Temp is 96.8 and below OR 101 and greater Pulse >90 BPM Resp >20/minute Acutely Altered Mental Status Are patient's symptoms suggestive of a new infection, such as: -Pneumonia -Skin, Soft Tissue -Endocarditis -UTI -Bone, Joint Infection -Implantable Device -Acute Abdominal Infection -Wound Infection -Meningitis -Blood Stream Catheter Infection -Unknown GI Complaint Exam - Abdominal Pain Complaint/Exam Onset: Gradual Duration: 24 hrs Symptoms Are: Still present Initial Severity: Mild Current Severity: Mild Character: Reports: Dull, Aching, Cramping Aggravating: Reports: None Alleviating: Reports: Spontaneous resolution Associated Signs and Symptoms: Reports: Constipation Patient Rh Status: Unknown Abdominal Findings: Present: None Differential Diagnoses: Constipation Review of Systems - Review Of Systems Constitutional: Reports: No symptoms Eyes: Reports: No symptoms Ears, Nose, Mouth, Throat: Reports: No symptoms Respiratory: Reports: No symptoms Cardiac: Reports: No symptoms GI: Reports: Abdominal pain (resolved), Constipated : Reports: No symptoms Musculoskeletal: Reports: No symptoms Skin: Reports: No symptoms Neurological: Reports: No symptoms Endocrine: Reports: No symptoms Hematologic/Lymphatic: Reports: No symptoms All Other Systems: Reviewed and Negative Past Medical History - Past Medical History Previously Healthy: No Endocrine: Reports: Dyslipidemia Cardiovascular: Reports: Hypertension Respiratory: Reports: None Hematological: Reports: None Gastrointestinal: Reports: GERD Genitourinary: Reports: CKD Neuro/Psych: Reports: Dementia Musculoskeletal: Reports: None Cancer: Reports: None Last Menstrual Period: UNKNOWN - Surgical History General Surgical History: Reports: None - Family History Family History: Reports: None - Social History Smoking Status: Never smoker Hx Substance Use: No Alcohol Screening: None - Immunizations Tetanus Shot up to Date: (UNKNOWN) Physical Exam - Physical Exam Appearance: Well-appearing, No pain distress, Well-nourished Eyes: BRANDT, EOMI, Conjunctiva clear ENT: Ears normal Neck: Supple Respiratory: Airway patent, Breath sounds clear, Breath sounds equal, Respirations nonlabored Cardiovascular: RRR, Pulses normal, No rub, No murmur GI/: Soft, Nontender, No masses, Bowel sounds normal, No Organomegaly Musculoskeletal: Normal strength, ROM intact, No edema, No calf tenderness Skin: Warm, Dry, Normal color Neurological: Sensation intact, Motor intact, Reflexes intact, Cranial nerves intact, Alert, Oriented Psychiatric: Affect appropriate, Mood appropriate Interpretation - Radiology Interpretation Radiology Interpretation By: Radiologist Radiology Results: Negative Exam Interpreted: CT Scan Critical Care Note - Critical Care Note Total Time (mins): 0 Course - Course Orders, Labs, Meds: Orders Category Date Time Status CT ABDOMEN/PELVIS WO CONTRAST Stat RADS 04/26/18 19:16 Completed Vital Signs: Temp Pulse Resp BP Pulse Ox 04/26/18 19:01 97.7 F 66 20 123/68 98 Departure - Departure Time of Disposition: 20:08 Disposition: HOME SELF-CARE Discharge Problem: Constipation Instructions: Constipation (ED) Condition: Good Pt referred to PMD for follow-up: No IPMP verified?: No Additional Instructions: miralax 17grams bid --start tonight--mag citrate one bottle tonight---colace 100mg bid x 3 days--f/u wtih dr armijo Allergies/Adverse Reactions: Allergies No Known Allergies Allergy (Verified 04/26/18 19:11) Home Medications: Ambulatory Orders Amlodipine Besylate 10 mg PO DAILY 12/16/14 Donepezil HCl 10 mg PO BEDTIME 12/16/14 Iron Ps Complex/B12/Folic Acid [Poly-Iron 150 Forte Capsule] 1 cap PO DAILY 01/27 Hydralazine HCl 100 mg PO TID 12/17/14 Nebivolol HCl [Bystolic] 10 mg PO DAILY tab-cap 02/21/17 Acetaminophen [Tylenol] 650 mg PO Q4H PRN 01/24/18 Multivitamin [Multi-Vitamin Daily] 1 each PO DAILY 01/24/18 Allopurinol 100 mg PO DAILY 03/26/18 Donepezil HCl 10 mg PO DAILY 03/26/18 Hydralazine HCl 50 mg PO TID 03/26/18 Iron Polysaccharide Complex [Poly-Iron] 150 mg PO DAILY 03/26/18 Losartan Potassium 25 mg PO BID 03/26/18 Spironolactone 50 mg PO DAILY 03/26/18 Disposition Discussed With: Patient, Family
== END 2018-04-26 20:28 | disposition home or self-care (01) ==
LOC: ED 19:01
DX: K59.00 Constipation, unspecified (principal)
CPT/HCPCS: 99282

== ENCOUNTER 2018-05-06 09:28 | Outpatient (CLI) | END 2018-05-06 09:29 | disposition home or self-care (01) | LOC: FCC-LAB 09:28 | PROVIDERS: ATTEND General Practice | DX: E78.5 Hyperlipidemia, unspecified (principal); I10 Essential (primary) hypertension; K21.0 Gastro-esophageal reflux disease with esophagitis; K22.2 Esophageal obstruction; K22.70 Barrett's esophagus without dysplasia; N18.6 End stage renal disease; D64.9 Anemia, unspecified; Z79.899 Other long term (current) drug therapy; F03.90 Unspecified dementia, unspecified severity, without behavioral disturbance, psychotic disturbance, mood disturbance, and anxiety; E87.5 Hyperkalemia | CPT/HCPCS: 36415; 80053; 80061; 81001; 85025 ==

== ENCOUNTER 2018-05-08 07:08 | Outpatient (CLI) | END 2018-05-08 07:09 | disposition home or self-care (01) | LOC: FCC-LAB 07:08 | PROVIDERS: ATTEND General Practice | DX: Z79.899 Other long term (current) drug therapy (principal) | CPT/HCPCS: 81001; 87086 ==

== ENCOUNTER 2018-07-02 15:31 | Outpatient (CLI) | END 2018-07-02 15:32 | disposition home or self-care (01) | LOC: FCC-LAB 15:31 | PROVIDERS: ATTEND General Practice | DX: E78.5 Hyperlipidemia, unspecified (principal); I10 Essential (primary) hypertension; D64.9 Anemia, unspecified; N18.6 End stage renal disease; Z79.899 Other long term (current) drug therapy | CPT/HCPCS: 36415; 80053; 80061; 81001; 85025; 87086 ==

== ENCOUNTER 2018-10-23 16:25 | Outpatient (CLI) | END 2018-10-23 16:26 | disposition home or self-care (01) | LOC: LAB 16:25 | PROVIDERS: ATTEND Internal Medicine Nephrology | DX: N18.5 Chronic kidney disease, stage 5 (principal); I10 Essential (primary) hypertension | CPT/HCPCS: 36415; 80069; 81001; 82306; 82570; 83735; 83970; 84156; 84550; 85027 ==

== ENCOUNTER 2018-11-07 13:11 | Outpatient (CLI) | END 2018-11-07 13:12 | disposition home or self-care (01) | LOC: LAB 13:11 | PROVIDERS: ATTEND Internal Medicine Nephrology | DX: N18.5 Chronic kidney disease, stage 5 (principal) | CPT/HCPCS: 36415; 80048 ==

== ENCOUNTER 2018-12-13 10:24 | Outpatient (CLI) | END 2018-12-13 10:25 | disposition home or self-care (01) | LOC: RHC-LAB 10:24 | PROVIDERS: ATTEND General Practice | DX: I10 Essential (primary) hypertension (principal); I73.9 Peripheral vascular disease, unspecified; K21.0 Gastro-esophageal reflux disease with esophagitis; E78.5 Hyperlipidemia, unspecified; K22.70 Barrett's esophagus without dysplasia; N18.6 End stage renal disease; D64.9 Anemia, unspecified; Z79.899 Other long term (current) drug therapy | CPT/HCPCS: 36415; 80053; 80061; 81001; 85025 ==

== ENCOUNTER 2019-02-12 12:53 | Outpatient (CLI) | END 2019-02-12 12:54 | disposition home or self-care (01) | LOC: LAB 12:53 | PROVIDERS: ATTEND Internal Medicine Nephrology | DX: N18.5 Chronic kidney disease, stage 5 (principal) | CPT/HCPCS: 36415; 80053; 81001; 82306; 82570; 83735; 83970; 84100; 84156; 84550; 85025 ==